=== PATIENT | female | born 1945 | race Caucasian/White ===

== ENCOUNTER 2023-03-20 16:33 | Emergency (ER) | payer MEDICARE, MEDICAID ==
[2023-03-20] MEDS ORDERED: Succinylcholine 200 MG/10 ML MDV IVPUSH ONE (16:51)
[2023-03-20] MEDS ORDERED: Etomidate 2 MG/ML 20 ML SDV IVPUSH ONE (16:51)
[2023-03-20] MEDS ORDERED: propofoL 100 ML IV SCH (17:00)
[2023-03-20] MEDS: propofoL 100 ML ONE ×2 (17:01→17:47)
[2023-03-20] MEDS ORDERED: Sodium Chloride 0.9% 1,000 ML IV ONE ×3 (17:08→19:15)
[2023-03-20 17:15] LABS: BASOPHILS ABSOLUTE AUTO 0.01 K/mm3 (0.01-0.08); BASOPHILS PERCENT AUTO 0.1 % (0.1-1.2); EOSINOPHILS PERCENT AUTO 0 (0.7-5.8); IMMATURE GRAN ABSOLUTE AUTO 0.02 K/mm3 (0.00-0.10); IMMATURE GRAN PERCENT AUTO 0.3 % (<=1.0); LYMPHOCYTES ABSOLUTE AUTO 0.54 K/mm3 (1.18-3.74); LYMPHOCYTES PERCENT AUTO 7.5 % (19.3-51.7); MEAN PLATELET VOLUME 12.1 fl (9.4-12.3); MONOCYTES ABSOLUTE AUTO 0.55 K/mm3 (0.24-0.36); MONOCYTES PERCENT AUTO 7.6 % (4.7-12.5); NEUTROPHILS ABSOLUTE AUTO 6.07 K/mm3 (1.56-6.13); NEUTROPHILS PERCENT AUTO 84.5 % (34.0-71.1); PLATELET COUNT,PLT 161 K/mm3 (182-369); RED BLOOD CELL COUNT 6.82 M/mm3 (3.98-5.22); WHITE BLOOD CELL COUNT,WBC 7.19 K/mm3 (3.98-10.04)
[2023-03-20] MEDS ORDERED: Diltiazem 125 MG in Sodium Chloride 0.9% 100 ML IV SCH (17:15)
[2023-03-20] MEDS ORDERED: Midazolam 1 MG/ML 5 ML SDV IVPUSH ONE (17:24)
[2023-03-20] MEDS ORDERED: Midazolam 50 MG in Sodium Chloride 0.9% 40 ML IV SCH (17:30)
[2023-03-20 17:33] LABS: HEMATOCRIT 72.5 % (34.1-44.9); HEMOGLOBIN 20.5 gm/dl (11.2-15.7)
[2023-03-20 17:36] LABS: MEAN CORPUSCULAR HEMOGLOBIN 30.1 pg (25.6-32.2); MEAN CORPUSCULAR HGB CONC 28.3 g/dl (32.2-35.5)
[2023-03-20 17:37] LABS: MEAN CORPUSCULAR VOLUME 106.3 fl (79.4-94.8)
[2023-03-20] MEDS ORDERED: propofoL 100 ML IV STA (17:38)
[2023-03-20 17:47] LABS: A/G RATIO 1.1 (1-2); ALBUMIN 2.9 g/dl (3.4-5.0); ANION GAP 19.9 (5-15); BILIRUBIN TOTAL 2.3 mg/dL (0.2-1.0); BUN/CREATININE RATIO 23.5 (14-18); CALCIUM 10.1 mg/dL (8.5-10.1); CREATININE 2.3 mg/dL (0.55-1.02); EST CRCL DRUG DOSING (CG) 17.85 mL/min; POTASSIUM,K 4.9 mEq/L (3.5-5.1); PROTEIN TOTAL,TP 5.5 g/dl (6.4-8.2)
[2023-03-20 17:48] LABS: INR 2.2; PROTHROMBIN TIME 22.2 SECONDS (9.7-12.0)
[2023-03-20 18:09] LABS: SLIDE REVIEW ABNORMAL SMEAR
[2023-03-20 18:26] LABS: PCO2 ARTERIAL 36.8 mmHg (35.0-45.0)
[2023-03-20 18:27] LABS: BASE EXCESS ARTERIAL -3.9 (-2-2.0); BICARBONATE,ARTERIAL 20.4 meq/L (22.0-26.0); O2 SATURATION ARTERIAL 98.7 % (96.0-97.0)
[2023-03-20] MEDS ORDERED: Aspirin 300 MG Supp RECTAL ONE (18:30)
[2023-03-20] MEDS ORDERED: cefTRIAXone 1 GM in Sodium Chloride 0.9% 100 ML IV ONE (18:48)
[2023-03-20] MEDS ORDERED: methylPREDNISolone Sodium Succinate 125 MG/2 ML SDV IVPUSH ONE (18:52)
[2023-03-20] MEDS ORDERED: Sodium Chloride 0.9% 1,000 ML IV SCH (20:30)
== END 2023-03-20 21:03 ==
LOC: JD.ED 16:33
DX: R41.82 Altered mental status, unspecified (principal); J96.01 Acute respiratory failure with hypoxia; I48.91 Unspecified atrial fibrillation; N28.9 Disorder of kidney and ureter, unspecified; R77.8 Other specified abnormalities of plasma proteins; Z72.0 Tobacco use; Z20.822 Contact with and (suspected) exposure to COVID-19
CPT/HCPCS: 31500; 36415; 36600; 51702; 70450; 80053; 82803; 84484; 85025; 85610; 87040; 92960; 93005; 96361; 96365; 96375; 99285; A9270; J0330; J0696; J2250; J2704; J2930; J3490; J7030; U0002; 93010; 99291